=== PATIENT | female | born 2000 | race Caucasian/White ===

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

== ENCOUNTER 2021-05-10 17:43 | Emergency (ER) | payer OTHER, SELFPAY ==
--- NOTE | ~2021-05-10 | XR_ITS ---
EXAMINATION: XR hand RT min 3V EXAM DATE: 05/10/2021 18:03 INDICATION: Fall, possible hyperextension injury, palmar pain. TECHNIQUE: Right hand frontal, lateral and oblique projections obtained and reviewed. There is no pr ior study for comparison. FINDINGS: There is acute closed posttraumatic oblique fracture through the right 4th metacarpal shaft , mild posterior displacement and volar angulation. Small amount of rotation not excludable. There is overlying soft tissue swelling. IMPRESSION: Right 4th metacarpal shaft fracture. Reviewed, dictated and finalized at location A. [facility]
[2021-05-10 17:57] VITALS: BP 112/67; PULSE 78; RESP 16; TEMP 37.6; O2SAT 100
--- NOTE | 2021-05-10 18:20 | ED.UPPEXIN ---
HPI - Extremity Injury (Upper) General Chief Complaint: Extremity Injury, Upper Stated Complaint: right hand injury Time Seen by Provider: 05/10/21 18:09 Source: patient and RN notes reviewed Mode of arrival: ambulatory Limitations: no limitations History of Present Illness HPI narrative: Patient presents today complaining of low right hand injury. She fell in the shower 2 days ago injuring her hand. She currently rates her pain 7/10, which increases with movement of the fingers. She has been taking ibuprofen with mild short-term relief. Reports some tingling in fingers 3 through 5. MD complaint: injury to: right and hand Related Data Allergies Allergy/AdvReac Type Severity Reaction Status Date / Time No Known Allergies Allergy Verified 07/11/19 17:25 Review of Systems Review of Systems: CONSTITUTIONAL: Denies body aches, fever, chills, or sweats. EYES: Denies visual changes, redness, or discharge. ENT: Denies rhinorrhea, congestion, sore throat, or otalgia. CARDIOVASCULAR: Denies chest pain, palpitations, or edema. RESPIRATORY: Denies cough or dyspnea. GASTROINTESTINAL: Denies abdominal pain, nausea, vomiting, or diarrhea. GENITOURINARY: Denies dysuria or hematuria. SKIN: Denies rash, itching, or wounds. MUSCULOSKELETAL: Denies back pain, or myalgia.+ Right hand injury NEUROLOGIC: Denies headache, numbness,or weakness.+ Tingling of fingers PSYCH: Denies depression or anxiety. PMFSH Comments At time of signature, I have reviewed and agree with nursing past medical, surgical, social and family history unless otherwise noted. Please see nursing chart for further information. There is no relevant family history pertinent to the presenting complaint Exam Narrative: GENERAL: Well-appearing, well-nourished, and in no acute distress. HEAD: Normocephalic, atraumatic. EYES: EOMI. No redness or drainage. Conjunctivae normal. ENT: Mucous membranes pink and moist. NECK: Normal AROM. CHEST: No respiratory distress. EXTREMITIES: Right hand: Ecchymosis over the dorsum of the entire hand. Tenderness to dorsal metacarpal area 3 through 5 and on the palmar surface as well. No tenderness to the fingers. Mild to moderate edema to the dorsum of the hand. Distal sensation intact in all 5 fingers. Capillary refill normal. Radial pulse normal. Full AROM in all fingers with increased pain in the fourth and fifth metacarpal with movement of the fingers. SKIN: Warm, dry, no rash. Capillary refill normal. Normal skin turgor. NEURO: No focal deficits. Alert and oriented x3. Gait steady. PSYCH: Normal affect. No signs of depression or anxiety. Course Vital Signs Vital signs: Vital Signs Temperature 99.6 F 05/10/21 17:57 Pulse Rate 78 05/10/21 17:57 Respiratory Rate 16 05/10/21 17:57 Blood Pressure 112/67 05/10/21 17:57 Pulse Oximetry 100 05/10/21 17:57 Temperature 99.6 F 05/10/21 17:57 Pulse Rate 78 05/10/21 17:57 Respiratory Rate 16 05/10/21 17:57 Blood Pressure 112/67 05/10/21 17:57 Pulse Oximetry 100 05/10/21 17:57 Reviewed Procedures Orthopedic Splinting/Casting Injury #1: Splinting/Casting Date: 05/10/21 Splinting/Casting Time: 18:26 Side: right (Hand) Splint: customized in ED OCL: ulnar gutter Pre-Procedure Neuro Vascular Exam: normal Post-Procedure Neuro Vascular Exam: normal Additional Comments: Placed by tech MDM - Extremity Injury (Upper) Differential Diagnosis Differential diagnosis: Likely fracture of hand and other (Finger fracture, contusion, hematoma, finger sprain) Imaging Data Radiologist's impression: ITS Impressions Hand X-Ray 05/10/21 18:04 IMPRESSION: Right 4th metacarpal shaft fracture. Critical Care Time Critical Care Time Critical Care Time: No Discharge Plan Discharge Clinical Impression: Closed fracture of metacarpal of right hand Qualifiers: Encounter type: initial encounter
== END 2021-05-10 18:36 | disposition home or self-care (01) ==
PROVIDERS: Emergency Provider Nurse Practitioner
DX: S62.324A Displaced fracture of shaft of fourth metacarpal bone, right hand, initial encounter for closed fracture (principal); W19.XXXA Unspecified fall, initial encounter
CPT/HCPCS: 29125; 73130; 99214; A4565; G0463

== ENCOUNTER 2022-03-04 19:22 | Emergency (ER) | payer OTHER, SELFPAY ==
[2022-03-04 19:38] VITALS: BP 118/82; PULSE 136; RESP 16; TEMP 37.6; O2SAT 100
--- NOTE | 2022-03-04 20:00 | ED.GENADULT ---
HPI - General Adult General Chief complaint: Unspecified Stated complaint: Allergic Recation Time Seen by Provider: 03/04/22 20:10 Source: patient, RN notes reviewed and old records reviewed Mode of arrival: ambulatory Limitations: no limitations History of Present Illness HPI narrative: 22 year old female who presents to [facility] care stating she continues to have some sinus drainage and congestion and redness to her nose, but reports she was diagnosed with a sinus infection 6 days ago by her PCP..Patient states initially she had red skin areas under her nose that were really irritated and used mupirocin ointment with no improvement so she stopped the ointment and is just taking the antibiotic but she doesn't really feel she is much better. Patient states that she noted that her lips looked swollen this morning and she thought they looked really red, reports that she took some Benadryl for her lips about an hour ago and is really concerned. Patient denies any difficulty with her breathing or any difficulty with her swallowing, reports also some discomfort to her throat.. MD complaint: sinus pain and lips are red and concern of swelling by patient Severity scale (1-10): 6 Related Data Home Medications Medication Instructions Recorded Confirmed amoxicillin 875 mg tablet 875 mg BID 03/04/22 03/04/22 ergocalciferol (vitamin D2) 1,250 50,000 unit DAILY 03/04/22 03/04/22 mcg (50,000 unit) capsule sertraline 100 mg tablet 100 mg DAILY 03/04/22 03/04/22 topiramate 50 mg tablet 50 mg DAILY 03/04/22 03/04/22 trazodone 50 mg tablet 50 mg DAILY 03/04/22 03/04/22 Allergies Allergy/AdvReac Type Severity Reaction Status Date / Time No Known Allergies Allergy Verified 03/04/22 19:46 Review of Systems Review of Systems: CONSTITUTIONAL: Patient reports general malaise, denies any chills, sweats, or fever. EYES: Denies visual changes, redness, or discharge. ENT: reports rhinorrhea, congestion, sinus pain,no otalgia and some sore throat. CARDIOVASCULAR: Denies chest pain, palpitations, or edema. RESPIRATORY: Denies cough.? Denies dyspnea. GASTROINTESTINAL: Denies abdominal pain, nausea, vomiting, diarrhea SKIN: Denies rash or itching. MUSCULOSKELETAL: Denies myalgia. NEUROLOGIC: Denies headache. All systems reviewed & are unremarkable except as noted in HPI and below PMFSH Past Medical History Medical History (Updated 03/08/22 @ 08:33 by Sue Meneses NP) Anxiety and depression Neuralgia Social History Social History (Updated 03/08/22 @ 08:34 by Sue Meneses NP) Smoking status: Never smoker Alcohol use details: social Substance use type: does not use Occupation/Education: student Gender identity (if verbalized by the patient): Female Comments At time of signature, agree with nursing past medical, surgical, social and family history. There is no relevant family history pertinent to the presenting complaint Exam Narrative: GENERAL: Well-appearing, well-nourished, and in no acute distress. HEAD: Normocephalic EYES: PERRLA, conjunctivae clear ENT: Nares clear, turbinates edematous and erythematous, clear discharge. Mucous membranes moist. TM pearly brizuela with good light reflex bilaterally; no tragal tenderness. Oropharynx erythematous without lesions. Tonsils not enlarged and without exudate, no drooling, no hoarseness, no trismus, uvula midline. NECK: Supple. No lymphadenopathy CHEST: Clear to auscultation, breath sounds equal. No wheezing, rhonchi, rales, or stridor. No respiratory distress, speaks in full sentences. SAO2 100% on room air HEART: Regular rate and rhythm. No murmur heard. SKIN: Warm, dry, no rash. NEURO: Alert and oriented x3. PSYCH: Normal mood and affect Course Course Emergency Course: Patient is aware of diagnosis, understands and agrees to treatment plan.? Anticipatory guidance given.? Patient agrees to follow-up as directed and is aware of reasons
--- NOTE | 2022-03-04 20:10 | ED.GENADULT ---
HPI - General Adult General Chief complaint: Unspecified Stated complaint: Allergic Recation Time Seen by Provider: 03/04/22 20:10 Source: patient, RN notes reviewed and old records reviewed Mode of arrival: ambulatory Limitations: no limitations Related Data Home Medications Medication Instructions Recorded Confirmed amoxicillin 875 mg tablet 875 mg DAILY 03/04/22 03/04/22 ergocalciferol (vitamin D2) 1,250 50,000 unit DAILY 03/04/22 03/04/22 mcg (50,000 unit) capsule sertraline 100 mg tablet 100 mg DAILY 03/04/22 03/04/22 topiramate 50 mg tablet 50 mg DAILY 03/04/22 03/04/22 trazodone 50 mg tablet 50 mg DAILY 03/04/22 03/04/22 Allergies Allergy/AdvReac Type Severity Reaction Status Date / Time No Known Allergies Allergy Verified 03/04/22 19:46 Review of Systems Review of Systems: CONSTITUTIONAL: Denies malaise, chills, sweats, or fever. EYES: Denies visual changes, redness, or discharge. ENT: Reports rhinorrhea, congestion, sinus pain, otalgia and sore throat. CARDIOVASCULAR: Denies chest pain, palpitations, or edema. RESPIRATORY: Reports cough.? Denies dyspnea. GASTROINTESTINAL: Denies abdominal pain, nausea, vomiting, diarrhea SKIN: Denies rash or itching. MUSCULOSKELETAL: Denies myalgia. NEUROLOGIC: Denies headache. All systems reviewed & are unremarkable except as noted in HPI and below PMFSH Comments At time of signature, agree with nursing past medical, surgical, social and family history. There is no relevant family history pertinent to the presenting complaint Exam Narrative: GENERAL: Well-appearing, well-nourished, and in no acute distress. HEAD: Normocephalic EYES: PERRLA, conjunctivae clear ENT: Nares clear, turbinates edematous and erythematous, clear discharge. Mucous membranes moist. TM pearly brizuela with dull light reflex bilaterally; no tragal tenderness. Oropharynx erythematous without lesions. Tonsils not enlarged and without exudate, no drooling, no hoarseness, no trismus, uvula midline. NECK: Supple. No lymphadenopathy CHEST: Clear to auscultation, breath sounds equal. No wheezing, rhonchi, rales, or stridor. No respiratory distress, speaks in full sentences. HEART: Regular rate and rhythm. No murmur heard. SKIN: Warm, dry, no rash. NEURO: Alert and oriented x3. PSYCH: Normal mood and affect Course Course Emergency Course: Patient is aware of diagnosis, understands and agrees to treatment plan.? Anticipatory guidance given.? Patient agrees to follow-up as directed and is aware of reasons to seek care at the emergency department. Portions of this record may have been created with voice recognition software Level of Care: Express Care Visit Vital Signs Vital signs: Vital Signs Temperature 37.6 C 03/04/22 19:38 Pulse Rate 136 H 03/04/22 19:38 Respiratory Rate 16 03/04/22 19:38 Blood Pressure 118/82 03/04/22 19:38 Pulse Oximetry 100 03/04/22 19:38 Oxygen Delivery Room Air 03/04/22 19:38 Temperature 37.6 C 03/04/22 19:38 Pulse Rate 79 03/04/22 20:17 Respiratory Rate 18 03/04/22 20:17 Blood Pressure 103/73 03/04/22 20:17 Pulse Oximetry 99 03/04/22 20:17 Oxygen Delivery Room Air 03/04/22 20:17 Reviewed Medical Decision Making Differential Diagnosis Differential Diagnosis: sinus infection, sinus pain, irritation to lips, sinus congestion, URI Medical Records Medical records reviewed: Yes I reviewed the external patient's medical records. Vital Signs Vital Signs: Vital Signs Temperature 37.6 C 03/04/22 19:38 Pulse Rate 136 H 03/04/22 19:38 Respiratory Rate 16 03/04/22 19:38 Blood Pressure 118/82 03/04/22 19:38 Pulse Oximetry 100 03/04/22 19:38 Oxygen Delivery Room Air 03/04/22 19:38 Temperature 37.6 C 03/04/22 19:38 Pulse Rate 79 03/04/22 20:17 Respiratory Rate 18 03/04/22 20:17 Blood Pressure 103/73 03/04/22 20:17 Pulse Oximetry 99 03/04/22 20:17 Oxygen Deliver
[2022-03-04 20:17] VITALS: BP 103/73; PULSE 79; RESP 18; O2SAT 99
== END 2022-03-04 20:26 | disposition home or self-care (01) ==
PROVIDERS: Emergency Provider Registered Nurse
DX: J34.89 Other specified disorders of nose and nasal sinuses (principal); F41.9 Anxiety disorder, unspecified; F32.A Depression, unspecified
CPT/HCPCS: 99213; G0463